=== PATIENT | male | born 1995 | race African-American/Black ===

== ENCOUNTER 2018-05-22 18:45 | Emergency (ER) | payer OTHER ==
[~2018-05-22] VITALS: Ht 180.3 cm; Wt 104.3 kg
[~2018-05-22 18:45] MED LIST: BACTROBAN OINT22 GM TP; SOOTHING CARE28 GM TP
[2018-05-22] MEDS ORDERED: NORVASC5 MG (19:05)
[2018-05-22] MEDS ORDERED: SYNTHROID50 MCG (19:05)
[2018-05-22] MEDS ORDERED: VITAMIN D250000 UNIT (19:06)
== END 2018-05-22 22:54 | disposition home or self-care (01) ==
LOC: ER 18:45
DX: J06.9 Acute upper respiratory infection, unspecified (principal)